=== PATIENT | male | born 1935 | race Caucasian/White ===

== ENCOUNTER → 2017-04-08 | Day surgery (SDC) | payer OTHER, MEDICARE ==
[2017-03-23 12:39] VITALS: Ht 182.9 cm; Wt 113.6 kg
[~2017-04-08] VITALS: Ht 182.9 cm; Wt 113.6 kg
[~2017-04-08] MED LIST: ASPI325T45 PO; ATEN-173 PO; BUPR-79 PO; LEVO50TA6 PO; LIDOCAINE HCL 2% 2 ML VIAL (20MG/ML) ONE; MAGN400T6 PO; METF-383 PO; MIDAZOLAM HCL 1 MG/ML 2ML VIAL ONE; PRLSR20 PO; PROPOFOL IV EMULSION 10 MG/ML 20 ML VIAL IV ONE; SODIUM CHLORIDE 0.9% 500ML 500 ML IV ONE; [UNRECOGNIZED DRUG - OTHER] PO
--- NOTE | 2017-04-08 13:16 | Endo History and Physical ---
History & Physical Date of Service: Apr 08, 2017. Chief Complaint: HX OF POLYPS Referring Physician: DR. ELISE History of Present Illness screening colonoscopy Past Medical History Arthritis, Hypertension Past Surgical History Hx Cardiac Surgery: No Hx Internal Defibrillator: No Hx Pacemaker: No Hx Abdominal Surgery: No Hx of Implantable Prosthesis: No Hx Post-Op Nausea and Vomiting: No Hx Cancer Surgery: No Hx Thoracic Surgery: No Hx Orthopedic: No Hx Urinary Tract Surgery: No Family History None Social History Smoking Status: Former Smoker Hx Substance Use: No Hx Alcohol Use: Yes (OCCASIONAL) Allergies Coded Allergies: No Known Allergies (Verified , 04/08/17) Current Medications Reported Home Medications Medications Dose Route/Sig Max Daily Dose Days Date Category [Ilraqrosen] 200 Mg PO DAILY 03/23/17 Reported Prilosec (Omeprazole) 20 Mg Capcr 20 Mg PO DAILY 03/23/17 Reported Wellbutrin Sr (Bupropion HCl) 150 Mg Ertab 150 Mg PO DAILY 03/23/17 Reported Glucophage (Metformin Hcl) 850 Mg Tab 850 Mg PO DAILY 03/23/17 Reported Mag-Ox (Magnesium Oxide) 400 Mg Tab 400 Mg PO DAILY 12/13/13 Reported Aspirin 325 Mg Tab 325 Mg PO DAILY 12/13/13 Reported Levothyroxine Sodium 50 Mcg Tab 50 Mcg PO DAILY 12/13/13 Reported Tenormin (Atenolol) 25 Mg Tab 25 Mg PO DAILY 12/13/13 Reported Vital Signs Weight (Kilograms): 113.64 Height (Feet): 6 Height (Inches): 0 Date Time Temp Pulse Resp B/P (MAP) Pulse Ox O2 Delivery O2 Flow Rate FiO2 04/08/17 12:40 36.8 73 22 182/93 (122) 93 Room Air Physical Exam AAOx3 Nls1s2 Lungs CTA Abd soft NT/ND + BS - CCE Assessment and Plan colonoscopy
--- NOTE | 2017-04-08 14:12 | Discharge Instructions ---
Endoscopy Patient Instructions Date / Procedure(s) Performed Apr 08, 2017. Colonoscopy Allergy Information Coded Allergies: No Known Allergies (Verified , 04/08/17) Discharge Date / Findings Apr 08, 2017. polyps, diverticulosis Medication Instructions Stopped Medication(s): ASPIRIN 325MG 04/05/17 Restart Stopped Medication(s): Reported Home Medications Medications Dose Route/Sig Max Daily Dose Days Date Category [Ilraqrosen] 200 Mg PO DAILY 03/23/17 Reported Prilosec (Omeprazole) 20 Mg Capcr 20 Mg PO DAILY 03/23/17 Reported Wellbutrin Sr (Bupropion HCl) 150 Mg Ertab 150 Mg PO DAILY 03/23/17 Reported Glucophage (Metformin Hcl) 850 Mg Tab 850 Mg PO DAILY 03/23/17 Reported Mag-Ox (Magnesium Oxide) 400 Mg Tab 400 Mg PO DAILY 12/13/13 Reported Aspirin 325 Mg Tab 325 Mg PO DAILY 12/13/13 Reported Levothyroxine Sodium 50 Mcg Tab 50 Mcg PO DAILY 12/13/13 Reported Tenormin (Atenolol) 25 Mg Tab 25 Mg PO DAILY 12/13/13 Reported Reported Home Medications Medications Dose Route/Sig Max Daily Dose Days Date Category [Ilraqrosen] 200 Mg PO DAILY 03/23/17 Reported Prilosec (Omeprazole) 20 Mg Capcr 20 Mg PO DAILY 03/23/17 Reported Wellbutrin Sr (Bupropion HCl) 150 Mg Ertab 150 Mg PO DAILY 03/23/17 Reported Glucophage (Metformin Hcl) 850 Mg Tab 850 Mg PO DAILY 03/23/17 Reported Mag-Ox (Magnesium Oxide) 400 Mg Tab 400 Mg PO DAILY 12/13/13 Reported Aspirin 325 Mg Tab 325 Mg PO DAILY 12/13/13 Reported Levothyroxine Sodium 50 Mcg Tab 50 Mcg PO DAILY 12/13/13 Reported Tenormin (Atenolol) 25 Mg Tab 25 Mg PO DAILY 12/13/13 Reported Provider Instructions Activity Restrictions - No exercising or heavy lifting for 24 hours. - Do not drink alcohol the day of the procedure. - Do not drive a car or operate machinery until the day after the procedure. - Do not make any important decisions or sign important papers in 24 hours after the procedure. Following Day: - Return to full activity which may include returning to work/school. Diet Start your diet with liquids and light foods (jello, soup, juice, toast). Then eat your usual diet if not nauseated. Treatment For Common After Affects For mild abdominal pain, bloating, or excessive gas: - Rest - Eat lightly - Lie on right side Follow-Up Information Follow-up with DR. ELISE as scheduled Anesthesia Information What You Should Know You have had a procedure that required some medicine to reduce anxiety and discomfort. This treatment is called moderate sedation. After receiving the treatment, you may be sleepy, but you will be able to breathe on your own. The effects of the treatment may last for several hours. Follow these instructions along with Activity/Diet recommendations noted above: * Do NOT do anything where dizziness or clumsiness would be dangerous. * Rest quietly at home today, then you can be up and about tomorrow. * Have a responsible person stay with you the rest of today. * You may have had an I.V. today. If so, you may take the dressing off later today. Recommendations Call your doctor if: * Trouble breathing * Continuous vomiting for more than 24 hours * Temperature above 101 degrees * Severe abdominal pain or bloating * Pain not relieved by pain medicine ordered * There is increased drainage or redness from any incision * A large amount of rectal bleeding greater than 2-3 tablespoons. (If you had a polyp/s removed or have hemorrhoids, a small amount of blood - from the rectum is to be expected.) * You have any unanswered questions or concerns. IN THE EVENT OF A SERIOUS EMERGENCY, GO TO THE NEAREST EMERGENCY ROOM Your discharge instructions were prepared by provider Michael Angeles. Patient Instructions Signature Page Clifford Patiño Patient (or Guardian) Signature/Date: I have read and understand the instructions given to me by my caregivers. Caregiver/RN/Doctor Signature/Date: The above-named patient and/or guardian has received patient instructions on this date. + Original Patient Signature Page (only) stays with chart. Please make copy for patient.
--- NOTE | 2017-04-08 14:17 | GI REPORT ---
Procedure Date: 04/08/2017 1:31 PM Procedure: Colonoscopy Indications: High risk colon cancer surveillance: Personal history of colonic polyps Medicines: Propofol per Anesthesia Complications: No immediate complications. Estimated blood loss: Minimal. Estimated Blood Loss: Estimated blood loss was minimal. Estimated blood loss was minimal. Procedure: Pre-Anesthesia Assessment: - Prior to the procedure, a History and Physical was performed, and patient medications and allergies were reviewed. The patient's tolerance of previous anesthesia was also reviewed. The risks and benefits of the procedure and the sedation options and risks were discussed with the patient. All questions were answered, and informed consent was obtained. Prior Anticoagulants: The patient has taken no previous anticoagulant or antiplatelet agents. ASA Grade Assessment: III - A patient with severe systemic disease. After reviewing the risks and benefits, the patient was deemed in satisfactory condition to undergo the procedure. After I obtained informed consent, the scope was passed under direct vision. Throughout the procedure, the patient's blood pressure, pulse, and oxygen saturations were monitored continuously. The scope was introduced through the anus and advanced to the cecum, identified by appendiceal orifice and ileocecal valve. The colonoscopy was performed without difficulty. The patient tolerated the procedure well. The quality of the bowel preparation was good. Findings: The perianal and digital rectal examinations were normal. Pertinent negatives include normal sphincter tone, no palpable rectal lesions and no anal lesion or abnormality was detected. A 2 mm polyp was found at 30 cm proximal to the anus. The polyp was sessile. The polyp was removed with a cold biopsy forceps. Resection and retrieval were complete. Estimated blood loss was minimal. Verification of patient identification for the specimen was done by the physician and medical technician using the patient's name and medical record number. Multiple small-mouthed diverticula were found in the sigmoid colon. The retroflexed view of the distal rectum and anal verge was normal and showed no anal or rectal abnormalities. Non-bleeding internal hemorrhoids were found during retroflexion. The hemorrhoids were mild. Impression: - One 2 mm polyp at 30 cm proximal to the anus, removed with a cold biopsy forceps. Resected and retrieved. - Diverticulosis in the sigmoid colon. - The distal rectum and anal verge are normal on retroflexion view. Recommendation: - Discharge patient to home (ambulatory). - Resume regular diet. - Continue present medications. - Await pathology results. - Repeat colonoscopy for surveillance based on pathology results. - Return to referring physician as previously scheduled. MD Michael Roman MD 04/08/2017 2:16:55 PM This report has been signed electronically. Note Initiated On: 04/08/2017 1:31 PM I attest to the content of the Intraoperative Record and orders documented therein, exceptions below
--- NOTE | 2017-04-08 14:46 | Anesthesiology Progress Note ---
Anesthesia Post Op Note Date & Time Apr 08, 2017 at 14:45 Vital Signs Pain Intensity: 0 Vital Signs Past 12 Hours Date Time Temp Pulse Resp B/P (MAP) Pulse Ox O2 Delivery O2 Flow Rate FiO2 04/08/17 14:37 65 20 165/83 (110) 93 Room Air 04/08/17 14:27 65 20 147/75 (99) 94 Room Air 04/08/17 14:10 63 22 136/76 (96) 93 Room Air 04/08/17 12:40 36.8 73 22 182/93 (122) 93 Room Air Notes Mental Status: alert / awake / arousable, participated in evaluation Pt Amnestic to Procedure: Yes Nausea / Vomiting: adequately controlled Pain: adequately controlled Airway Patency, RR, SpO2: stable & adequate BP & HR: stable & adequate Hydration State: stable & adequate Anesthetic Complications: no major complications apparent
[2017-04-08 14:55] VITALS: BP 159/86; PULSE 66; O2SAT 93
== END | disposition home or self-care (01) ==
LOC: C.GI 12:21
PROVIDERS: ATTEND Internal Medicine Gastroenterology
DX: Z12.11 Encounter for screening for malignant neoplasm of colon (principal); K62.0 Anal polyp; K57.30 Diverticulosis of large intestine without perforation or abscess without bleeding; K64.8 Other hemorrhoids; Z86.010 Personal history of colon polyps; I10 Essential (primary) hypertension; M19.90 Unspecified osteoarthritis, unspecified site; Z87.891 Personal history of nicotine dependence; Z79.82 Long term (current) use of aspirin; Z79.899 Other long term (current) drug therapy

== ENCOUNTER → 2017-10-24 | Day surgery (SDC) | payer OTHER, MEDICARE ==
[2017-10-10 14:16] VITALS: BMI 31.0
--- NOTE | 2017-10-10 14:53 | PAT Medication Instructions ---
Service Date Oct 10, 2017. Current Home Medication List Aspirin (Aspirin), 325 MG PO QAM Atenolol (Tenormin), 25 MG PO QAM Bupropion (Wellbutrin Sr), 150 MG PO QAM Levothyroxine Sodium (Levothyroxine Sodium), 50 MCG PO QAM Magnesium Oxide (Mag-Ox), 400 MG PO QAM Metformin Hcl (Glucophage), 850 MG PO BID Omeprazole (Prilosec), 20 MG PO UD Medication Instructions For Your Scheduled Surgery -Follow your surgeon's instructions for: Aspirin (Aspirin), 325 MG PO QAM - Hold the following medications the morning of surgery: Magnesium Oxide (Mag-Ox), 400 MG PO QAM Metformin Hcl (Glucophage), 850 MG PO BID - Take the following medications the morning of surgery with a sip of water: Atenolol (Tenormin), 25 MG PO QAM Bupropion (Wellbutrin Sr), 150 MG PO QAM Levothyroxine Sodium (Levothyroxine Sodium), 50 MCG PO QAM Omeprazole (Prilosec), 20 MG PO UD (if needed) - Take the following medications as scheduled the night before surgery: Metformin Hcl (Glucophage), 850 MG PO BID Omeprazole (Prilosec), 20 MG PO UD (if needed) If you have any questions please call us at [phone] or [phone] or [phone]
[2017-10-10 15:22] LABS: BASO % 0.8 %; BASO ABS # 0.06 K/uL (0-0.2); EOS % 4.7 %; EOS ABS # 0.35 K/uL (0-0.5); HEMATOCRIT 45.5 % (42-52); HEMOGLOBIN 16.5 g/dL (14.0-18.0); IG# 0.02 K/uL (0.00-0.02); LYMPH % 35.5 %; LYMPH ABS # 2.65 K/uL (1.2-3.4); MEAN CELL VOLUME 87.8 fL (80-100); MEAN CORPUSCULAR HEMOGLOBIN 31.9 pg (25-34); MEAN CORPUSCULAR HGB CONC 36.3 g/dl (32-36); MEAN PLATELET VOLUME 10.1 fL (7.4-10.4); MONO % 7.6 %; MONO ABS # 0.57 K/uL (0.11-0.59); NEUT % 51.1 %; NEUT ABS # 3.82 K/uL (1.4-6.5); PLATELET COUNT 175 K/uL (130-400); RED CELL DISTRIBUTION WIDTH CV 14.4 % (11.5-14.5); WHITE BLOOD COUNT 7.47 K/uL (4.8-10.8)
--- NOTE | 2017-10-10 15:28 | DIAGNOSTIC IMAGING REPORT ---
CHEST 2 VIEWS ROUTINE CLINICAL HISTORY: Preoperative evaluation. COMPARISON STUDY: No previous studies for comparison. FINDINGS: Lung volumes are normal. There is no consolidation or evidence for pulmonary edema. Cardiomediastinal silhouette is unremarkable. There may be a calcified right midlung nodule. No pneumothorax or pleural effusion is present. IMPRESSION: No acute cardiopulmonary findings. Electronically signed by: Lucien Rodriguez M.D. 10/10/2017 3:27 PM Dictated Date/Time: 10/10/2017 3:26 PM
[2017-10-10 15:31] LABS: CREATININE 0.95 mg/dl (0.60-1.40)
[2017-10-10 15:32] LABS: CALCIUM 8.6 mg/dl (8.5-10.1); POTASSIUM 3.3 mmol/L (3.5-5.1)
[~2017-10-24] VITALS: Ht 180.3 cm; Wt 101.9 kg
[~2017-10-24] MED LIST changes: +ASPECOTC PO; -ASPI325T45 PO; +ATROPINE SULFATE 0.1 MG/ML 5ML SYR IV PRN; +BUPIVACAINE 0.5 % 5 MG/1 ML MPF 30ML VIAL ONE; +CEFAZOLIN 2000MG IV PUSH 15 ML IV SCH; +DEXAMETHASONE SOD INJ 4 MG/ML VIAL ONE; +EpHEDrine SULFATE 50MG/5ML SYR ONE; +EpHEDrine SULFATE INJ 50 MG/ML AMP IV PRN; +FENTANYL CITRATE INJ 50 MCG/1 ML 2 ML VIAL IV PRN; +FENTANYL CITRATE INJ 50 MCG/1 ML 2 ML VIAL ONE; +INSULIN HUMAN REGULAR PER UNIT 5 UNITS in SYRINGE 4.95 ML IV SCH; +LACTATED RINGER'S 1000ML 1,000 ML IV SCH; +LIDOCAINE HCL 1% 20 ML VIAL ONE; +NovoLIN-R INSULIN PER UNIT CHARGE ONE; +ONDANSETRON INJ 2 MG/ML 2 ML VIAL IV PRN; +ONDANSETRON INJ 2 MG/ML 2 ML VIAL ONE; +OXYC7.5T65 PO; +OXYCODONE/ACETAMINOPHEN 7.5-325 TAB PO PRN; -SODIUM CHLORIDE 0.9% 500ML 500 ML IV ONE; +SULF1TAB92 PO; -[UNRECOGNIZED DRUG - OTHER] PO
[2017-10-24 06:07] VITALS: BP 191/77; PULSE 58; TEMP 36.8; O2SAT 95; Ht 180.3 cm; Wt 101.9 kg
--- NOTE | 2017-10-24 06:50 | History & Physical Bridge Note ---
H&P Re-Evaluation Bridge Note: I have examined the patient, reviewed the History & Physical and in the interval since the performance of the History & Physical I have noted the following changes of clinical significance: No changes noted
--- NOTE | 2017-10-24 07:09 | Discharge Instructions ---
Discharge Instructions Date of Service Oct 24, 2017. Admission Reason for Admission: Phimosis Discharge Discharge Diagnosis / Problem: Phimosis Discharge Goals Goal(s): Decrease discomfort, Improve function Activity Recommendations Activity Limitations: resume your previous activity Lifting Limitations: gradually increase as tolerated Exercise/Sports Limitations: gradually increase as tolerated Shower/Bathe: tomorrow . Instructions / Follow-Up Instructions / Follow-Up Okay to wash 2-3 x daily with warm soapy water. Start tomorrow. Okay to shower. No baths or hot tubs. May have swelling or bleeding. Monitor for redness or extreme pain. Slowly increase activity. Current Hospital Diet Patient's current hospital diet: Discharge Diet Recommended Diet: Diabetes Type 2 Diet Procedures Procedures Performed: Circumcision Pending Studies Studies pending at discharge: no Medical Emergencies . Who to Call and When: Medical Emergencies: If at any time you feel your situation is an emergency, please call 911 immediately. . Non-Emergent Contact Non-Emergency issues call your: Primary Care Provider, Urologist Call Non-Emergent contact if: you have a fever, temperature is above 101, temperature is above 101.5, your pain is not controlled, your pain is worsening , your pain is unusual for you, wound has increased drainage, wound has increased redness, wound has increased pain . . "Provider Documentation" section prepared by Charanjit Joseph. .
--- NOTE | 2017-10-24 08:39 | [facility] Operative Report ---
Operative Report Operative Date Oct 24, 2017. Pre-Operative Diagnosis Phimosis, Severe Balanitis Post-Operative Diagnosis Same Procedure(s) Performed Circumcision Surgeon Jake Estimated Blood Loss Minimal Findings Severe Balanitis, Phimosis, Non healing Specimens Foreskin Drains None Anesthesia Type General Complication(s) none Disposition Recovery Room / PACU Indications Severe issues which failed topical and conservative treatment. Risks and benefits discussed at length. Description of Procedure Patient was consented and brought back to the operating room. Patient was placed under anesthesia in the supine position. Patient was prepped and draped in the regular sterile fashion. A time out was completed. With timeout completed, the patient's foreskin was reduced and the glans reprepped. The distal and proximal incisions were marked. A penile block was competed with local anesthetic. The proximal and distal incisions were made with a scalpel. All bleeding was controlled. At the dorsal region, the incisions were opened and connected. The foreskin was dissected and all bleeding was controlled. The foreskin was removed and sent for pathologic analysis. The skin edges and wound bed were assessed. Starting at the 12 and 6 o'Clock positions, the skin was reapproximated with an interrupted suture with a tag. Circumferentially, the skin was approximated with suture. No areas of concern with noted. The area was clean. Skin glue was placed. The area was bandaged. The patient was cleaned, aroused from anesthesia, and transferred to the pacu in stable condition having tolerated the procedure well with no complications. I was present and participated in all aspects of the procedure. I attest to the content of the Intraoperative Record and any orders documented therein. Any exceptions are noted below.
--- NOTE | 2017-10-24 09:14 | Anesthesiology Progress Note ---
Anesthesia Post Op Note Date & Time Oct 24, 2017 at 09:13 Vital Signs Pain Intensity: 0 Vital Signs Past 12 Hours Date Time Temp Pulse Resp B/P (MAP) Pulse Ox O2 Delivery O2 Flow Rate FiO2 10/24/17 09:05 54 23 174/90 93 Room Air 10/24/17 08:55 53 16 169/91 98 Oxymask 10 10/24/17 08:45 56 16 162/102 96 Oxymask 10 10/24/17 08:35 36.3 56 16 184/99 96 Oxymask 10 10/24/17 06:07 36.8 58 18 191/77 (115) 95 Room Air Notes Mental Status: alert / awake / arousable, participated in evaluation Pt Amnestic to Procedure: Yes Nausea / Vomiting: adequately controlled Pain: adequately controlled Airway Patency, RR, SpO2: stable & adequate BP & HR: stable & adequate Hydration State: stable & adequate Anesthetic Complications: no major complications apparent
[2017-10-24 09:25] VITALS: BP 150/90; PULSE 55; TEMP 36.5; O2SAT 92
[2017-10-24 09:55] VITALS: BP 146/72; PULSE 56; TEMP 36.5; O2SAT 92
[2017-10-24 10:25] VITALS: BP 153/91; PULSE 57; TEMP 36.5; O2SAT 92
== END | disposition home or self-care (01) ==
LOC: C.ACU 05:38
PROVIDERS: ATTEND Urology
DX: N48.1 Balanitis (principal); N47.1 Phimosis; E11.9 Type 2 diabetes mellitus without complications; Z87.39 Personal history of other diseases of the musculoskeletal system and connective tissue; Z87.442 Personal history of urinary calculi; Z79.84 Long term (current) use of oral hypoglycemic drugs; Z86.73 Personal history of transient ischemic attack (TIA), and cerebral infarction without residual deficits; E03.9 Hypothyroidism, unspecified; F41.9 Anxiety disorder, unspecified; F32.9 Major depressive disorder, single episode, unspecified; E66.9 Obesity, unspecified; Z87.891 Personal history of nicotine dependence